=== PATIENT | female | born 1950 | race Caucasian/White ===

== ENCOUNTER 2017-05-31 14:14 | Emergency (ER) | payer OTHER ==
[~2017-05-31] VITALS: Ht 157.5 cm; Wt 80.0 kg
[~2017-05-31 14:14] MED LIST: AMOX500T PO; ATEN1TAB73; CLON-352 PO; METH5TAB PO; PENI250T PO; POTA75TA2 PO; PROC25SU22 PO; PROV10TA PO
[2017-05-31 14:18] VITALS: BP 183/82; PULSE 73; RESP 16; TEMP 98.6; O2SAT 95
--- NOTE | 2017-05-31 14:27 | PD ---
Physical Exam Time Seen by Provider: 14:26 Narrative 67 y/o female with sudden onset vertigo sensation at 1030AM today, lasted 10 seconds and resolved. [facility] Vital signs reviewed. Seen at triage desk. Awaiting bed placement. Data Data Last Documented VS Vital Signs Date Time Temp Pulse Resp B/P Pulse Ox O2 Delivery O2 Flow Rate FiO2 05/31/17 14:18 98.6 73 16 183/82 95 MDM Medical Record Reviewed: Yes Supervised Visit with PERLA: Rakesh Leyva May 31, 2017 14:27
--- NOTE | 2017-05-31 14:49 | PD ---
HPI Chief Complaint: Dizziness Time Seen by Provider: 14:48 Travel History International Travel<30 days: No Contact w/Intl Traveler<30days: No Traveled to known affect area: No History of Present Illness HPI 67 YO F with PMH of HTN, IBS, RA presents to the ED for evaluation of a single episode of dizziness at 1030a today. Patient states that she was sitting at her computer when she felt as if the room was spinning. This feeling lasted approximately 10 seconds before resolving on its own. She endorses diaphoresis during the episode. She denies chest pains, palpitations, shortness of breath, nausea or vomiting, dysuria. She states that she checked her blood pressure immediately after the episode, measured 160/80. Asymptomatic now. No further episodes reported during the course of the day. PFSH Past Medical History Arthritis: Yes (DEGENERATIVE AND RHEUMATOID) Autoimmune Disease: Yes Blood Disorders: No Anxiety: Yes Cancer: No Cardiovascular Problems: Yes Diminished Hearing: Yes Genitourinary: No Hypertension: Yes Musculoskeletal: Yes (CHRONIC BACK PAIN, SPINAL STENOSIS,SPONDYLOSIS) Reproductive: No Respiratory: No Thyroid Disease: Yes (HYPO) Menopausal: Yes Past Surgical History Other Surgery: Yes (carpal tunnel surgery) Social History Alcohol Use: No Tobacco Use: No Substance Use: No Allergies-Medications (Allergen,Severity, Reaction): Coded Allergies: Allopurinol (Verified Allergy, Severe, Rash, 05/31/17) Amoxicillin (Verified Allergy, Severe, 05/31/17) STOMATITIS, RED, FLAT CIRCULAR SPOTS ON ARMS AND LEGS Codeine (Verified Allergy, Severe, HIVES, 05/31/17) Gabapentin (Verified Allergy, Severe, Dizziness, 05/31/17) Minocin (Verified Allergy, Severe, Dizziness, 05/31/17) NAUSEA AND DIZZINESS. Prednisone (Verified Allergy, Severe, Bleeding, 05/31/17) Probenecid (Verified Allergy, Severe, Diarrhea, 05/31/17) Venlafaxine (Verified Allergy, Severe, Nausea/Vomiting, 05/31/17) Uncoded Allergies: ZESTORETIC (Allergy, Severe, Diarrhea, 05/31/17) DIARRHEA, MUSCLE PAIN, RASH Reported Meds & Prescriptions Reported Meds & Active Scripts Active Provera (Medroxyprogesterone Acetate) 10 Mg Tab 10 Mg PO DAILY Reported Potassimin (Potassium) 75 Mg Tab 20 Meq PO Prochlorperazine 25 Mg Sup 10 Mg PO TIDPRN Amoxicillin 500 Mg Tab 875 Mg PO Q12 Pen Vk (Penicillin V Potassium) 250 Mg Tab 0 PO UNKNOWN DOSE Tenormin (Atenolol) 25 Mg Tab 0 UNKNOWN DOSE Clonidine Hcl (Clonidine HCl) 0.1 Mg Tab 0.1 Mg PO Methadone Hcl (Methadone HCl) 5 Mg Tab 2.5 Mg PO TID Review of Systems Except as stated in HPI: all other systems reviewed are Neg Physical Exam Narrative GENERAL: Well-nourished, well-developed hirsute white female in no acute distress. SKIN: Focused skin assessment warm/dry. HEAD: Normocephalic. Atraumatic. EYES: No scleral icterus. No injection or drainage. NECK: Supple, trachea midline. No JVD or lymphadenopathy. CARDIOVASCULAR: Regular rate and rhythm without murmurs, gallops, or rubs. RESPIRATORY: Breath sounds clear and equal bilaterally. No accessory muscle use. GASTROINTESTINAL: Abdomen soft, non-tender, nondistended. MUSCULOSKELETAL: No cyanosis, or edema. Impressive swan neck deformity of bilateral hands. Ambulatory with a walker. NEUROLOGICAL: Awake and alert. Cranial nerves II through XII intact. Motor and sensory grossly within normal limits. Five out of 5 muscle strength in all muscle groups. Normal speech. BACK: Nontender without obvious deformity. No CVA tenderness. Data Data Last Documented VS Vital Signs Date Time Temp Pulse Resp B/P Pulse Ox O2 Delivery O2 Flow Rate FiO2 05/31/17 14:53 Room Air 05/31/17 14:18 98.6 73 16 183/[address] Brain W/O Iv Contrast(Rout) (05/31/17 15:00) MDM Medical Decision Making Medical Screen Exam Complete: Yes Emergency Medical Condition: Yes Differential Diagnosis episodic dizziness versus HTN versus vertigo versus other Narrative Course 67 YO F with PMH of HTN, IBS, RA presents to the ED for evaluation of a single episode of dizziness at 1030a today. Patient states that she was sitting at her computer when she felt as if the room was spinning. This feeling lasted approximately 10 seconds before resolving on its own. She endorses diaphoresis during the episode. She denies chest pains, palpitations, shortness of breath, nausea or vomiting. She states that she checked her blood pressure immediately after the episode, measured 160/80. Asymptomatic now. No further episodes reported during the course of the day. Vitals reviewed. Physical exam reveals profound swan neck deformity of all the digits of the hands bilaterally. No focal neuro deficits. CT of the head negative for acute pathology. I do not feel further evaluation is warranted at this time. Single episode that lasted only 10 seconds. She is instructed to continue to monitor her blood pressure, follow up with her primary care, return to the ED for worsening symptoms. She indicated understanding of instructions and is agreeable to the care plan. She is stable and discharged home. Diagnosis Primary Impression: Episode of dizziness Referrals: Primary Care Physician Patient Instructions: Dizziness (ED), General Instructions Additional Instructions: Continue to monitor your blood pressure intermittently. Keep a log and discussed this with your primary care provider next visit. Return to ED for any urgent or emergent medical condition. Disposition: 01 DISCHARGE HOME Condition: Stable Kailee Linares May 31, 2017 14:49
--- NOTE | 2017-05-31 15:55 | RADRPT ---
EXAM DATE/TIME: 05/31/2017 15:39 [facility] COMPARISON: No previous studies available for comparison. INDICATIONS : Brief episode of dizziness earlier, now asymptomatic. RADIATION DOSE: 49.72 CTDIvol (mGy) MEDICAL HISTORY : Hypertension. Hypothyroidism. Rheumatoid arthritis. SURGICAL HISTORY : None. ENCOUNTER: Initial ACUITY: 1 day PAIN SCALE: 0/10 LOCATION: cranial TECHNIQUE: Multiple contiguous axial images were obtained of the head. Using automated exposure control and adj ustment of the mA and/or kV according to patient size, radiation dose was kept as low as reasonably a chievable to obtain optimal diagnostic quality images. DICOM format image data is available electro nically for review and comparison. FINDINGS: CEREBRUM: The ventricles are normal for age. No evidence of midline shift, mass lesion, hemorrhage or acute in farction. No extra-axial fluid collections are seen. Prominent calcifications are noted within the b ilateral basal ganglia. POSTERIOR FOSSA: The cerebellum and brainstem are intact. The 4th ventricle is midline. The cerebellopontine angle i s unremarkable. EXTRACRANIAL: The visualized portion of the orbits is intact. SKULL: The calvaria is intact. No evidence of skull fracture. CONCLUSION: No acute intracranial abnormality. Evin Burns MD on May 31, 2017 at 15:49 Board Certified Radiologist. This report was verified electronically.
== END 2017-05-31 16:27 | disposition home or self-care (01) ==
LOC: NEPD 14:14
DX: R42 Dizziness and giddiness (principal); R61 Generalized hyperhidrosis; I10 Essential (primary) hypertension; E07.9 Disorder of thyroid, unspecified; H91.90 Unspecified hearing loss, unspecified ear; Z87.19 Personal history of other diseases of the digestive system; Z87.39 Personal history of other diseases of the musculoskeletal system and connective tissue; Z86.2 Personal history of diseases of the blood and blood-forming organs and certain disorders involving the immune mechanism; Z86.59 Personal history of other mental and behavioral disorders; Z86.79 Personal history of other diseases of the circulatory system
CPT/HCPCS: 70450

== ENCOUNTER 2017-06-09 13:27 | Emergency (ER) | payer OTHER ==
[2017-06-09 13:29] VITALS: BP 216/93; PULSE 74; RESP 16; TEMP 97.9; O2SAT 97
[2017-06-09 14:33] VITALS: BP 216/93; PULSE 70; RESP 16; O2SAT 99
[2017-06-09 14:40] VITALS: BP 200/84; PULSE 75; RESP 16; O2SAT 99
[2017-06-09] MEDS ORDERED: ATEN25TA PO (14:40)
--- NOTE | 2017-06-09 14:55 | PD ---
HPI Chief Complaint: Dizziness Time Seen by Provider: 14:35 Travel History International Travel<30 days: No Contact w/Intl Traveler<30days: No Traveled to known affect area: No History of Present Illness HPI This patient complains of having an episode of dizziness. It lasted literally just a few seconds and resolved. She was here for it recently and had negative brain CT. This episode was less then the first one. Both episodes have occurred in the setting of spiked blood pressure. He is currently 200 systolic. No headache. No syncope or palpitations. Symptoms are of mild severity. No alleviating factors. PFSH Past Medical History Arthritis: Yes (DEGENERATIVE AND RHEUMATOID) Autoimmune Disease: Yes Blood Disorders: No Anxiety: Yes Cancer: No Cardiovascular Problems: Yes Diminished Hearing: Yes GERD: Yes Genitourinary: Yes (chronic kidney disease ) Hypertension: Yes Musculoskeletal: Yes (CHRONIC BACK PAIN, SPINAL STENOSIS,SPONDYLOSIS) Reproductive: No Respiratory: No Immunizations Current: Yes Thyroid Disease: Yes (HYPO) Influenza Vaccination: No Menopausal: Yes Past Surgical History Joint Replacement: Yes (carpal tunnel on left wrist) Other Surgery: Yes (carpal tunnel surgery) Social History Alcohol Use: No Tobacco Use: No Substance Use: No Allergies-Medications (Allergen,Severity, Reaction): Coded Allergies: Allopurinol (Verified Allergy, Severe, Rash, 06/09/17) Amoxicillin (Verified Allergy, Severe, 06/09/17) STOMATITIS, RED, FLAT CIRCULAR SPOTS ON ARMS AND LEGS Codeine (Verified Allergy, Severe, HIVES, 06/09/17) Gabapentin (Verified Allergy, Severe, Dizziness, 06/09/17) Minocin (Verified Allergy, Severe, Dizziness, 06/09/17) NAUSEA AND DIZZINESS. Prednisone (Verified Allergy, Severe, Bleeding, 06/09/17) Probenecid (Verified Allergy, Severe, Diarrhea, 06/09/17) Venlafaxine (Verified Allergy, Severe, Nausea/Vomiting, 06/09/17) Uncoded Allergies: ZESTORETIC (Allergy, Severe, Diarrhea, 05/31/17) DIARRHEA, MUSCLE PAIN, RASH Reported Meds & Prescriptions Reported Meds & Active Scripts Active Reported Sebex Topical (Salicylic Acid/Sulfur) 2-2 % Sham 1 Applic TOPICAL DAILY Apply to affected area on scalp for skin condition Prochlorperazine Maleate 10 Mg Tab 10 Mg PO DAILY PRN Aspirin Adult Low Strength (Aspirin) 81 Mg Tabdr 81 Mg PO DAILY Methadone (Methadone HCl) 5 Mg Tab 7.5 Mg PO HS Methadone (Methadone HCl) 5 Mg Tab 5 Mg PO BID Levothyroxine (Levothyroxine Sodium) 150 Mcg Tab 150 Mcg PO DAILY Diphenhydramine (Diphenhydramine HCl) 25 Mg Cap 25 Mg PO TID PRN Clotrimazole Topical (Clotrimazole) 1% Cream 1 Applic TOPICAL BID Apply to affected area(s) Omeprazole 20 Mg Tab 20 Mg PO DAILY PRN Colchicine 0.6 Mg Tab 0.6 Mg PO BID Clonidine (Clonidine HCl) 0.1 Mg Tab 0.1 Mg PO BID Robaxin (Methocarbamol) 500 Mg Tab 750 Mg PO TID PRN Folic Acid 1 Mg Tablet 1 Mg PO DAILY Lasix (Furosemide) 40 Mg Tab 40 Mg PO DAILY Trazodone (Trazodone HCl) 50 Mg Tab 50 Mg PO HS Claritin (Loratadine) 10 Mg Cap 10 Mg PO DAILY Atenolol 50 Mg Tab 50 Mg PO DAILY Review of Systems General / Constitutional: No: Fever Eyes: No: Visual changes HENT: Positive: Lightheadedness, No: Headaches Cardiovascular: No: Chest Pain or Discomfort Respiratory: No: Shortness of Breath Gastrointestinal: No: Abdominal Pain Genitourinary: No: Dysuria Musculoskeletal: No: Pain Skin: No Rash Neurologic: Positive: Dizziness, No: Weakness Psychiatric: No: Depression Endocrine: No: Polydipsia Hematologic/Lymphatic: No: Easy Bruising Physical Exam Narrative GENERAL: Well-nourished, well-developed patient in no apparent distress. SKIN: Focused skin assessment reveals no rash and nodules. Skin is Warm and dry. HEAD: Atraumatic. Normocephalic. EYES: Pupils equal and round. No scleral icterus. No injection or drainage. ENT: No nasal bleeding or discharge. Mucous membranes pink and moist. NECK: Trachea midline. No JVD. CARDIOVASCULAR: Regular rate and rhythm. No murmur appreciated. RESPIRATORY: No accessory muscle use. Clear to auscultation. Breath sounds equal bilaterally. GASTROINTESTINAL: Abdomen soft, non-tender, nondistended. Hepatic and splenic margins not palpable. MUSCULOSKELETAL: Obvious rheumatoid arthritis changes in the small joints of both hands. No clubbing. No cyanosis. No edema. NEUROLOGICAL: Awake and alert. No obvious cranial nerve deficits. Motor grossly within normal limits. Normal speech. PSYCHIATRIC: Appropriate mood and affect; insight and judgment normal. Data Data Last Documented VS Vital Signs Date Time Temp Pulse Resp B/P Pulse Ox O2 Delivery O2 Flow Rate FiO2 06/09/17 15:46 91 18 186/75 100 Room Air 06/09/17 13:29 97.9 Orders Nifedipine (Procardia) (06/09/17 15:00) [employer] / Telemetry [id number] (06/09/17 14:47) MDM Medical Decision Making Medical Screen Exam Complete: Yes Emergency Medical Condition: Yes Medical Record Reviewed: Yes Differential Diagnosis Hypertensive episode, vertigo, noncompliance Narrative Course I have reviewed the patient's electronic medical record. Reviewed her recent visit including negative CT of the brain I gave her dose of Procardia for accelerated hypertension Will reassess blood pressure She is neurologically intact. Blood pressure this time is 178 systolic Advised her to check and record daily She is to follow-up with primary care to discuss her blood pressure that is not being controlled as well as her lightheadedness spells Extended cardiac monitoring reveals sinus rhythm with a rare PVC Diagnosis Primary Impression: Episode of dizziness Additional Impression: Accelerated hypertension Additional Instructions: The patient was advised to follow up with their physician and return if they worsen. Med/Other Pt SpecificInfo: Other Disposition: 01 DISCHARGE HOME Condition: Stable Nehemias Hartman MD Jun 09, 2017 14:55
[2017-06-09] MEDS ORDERED: NIFEdipine 20 MG CAP PO ONE (15:00)
[2017-06-09] MEDS ORDERED: ATEN50TA PO (15:17)
[2017-06-09] MEDS ORDERED: FOLI1TAB6 PO (15:18)
[2017-06-09] MEDS ORDERED: CLAR10CA3 PO (15:18)
[2017-06-09] MEDS ORDERED: FURO1TAB60 PO (15:18)
[2017-06-09] MEDS ORDERED: ASPI1TAB91 PO (15:18)
[2017-06-09] MEDS ORDERED: LEVO150T7 PO (15:18)
[2017-06-09] MEDS ORDERED: CLOT1CRE TOPICAL (15:18)
[2017-06-09] MEDS ORDERED: OMEP20TA PO (15:18)
[2017-06-09] MEDS ORDERED: COLC1TAB15 PO (15:18)
[2017-06-09] MEDS ORDERED: ROBA500T PO (15:18)
[2017-06-09] MEDS ORDERED: TRAZ50TA12 PO (15:18)
[2017-06-09] MEDS ORDERED: CLON0.1T PO (15:18)
[2017-06-09] MEDS ORDERED: [UNRECOGNIZED DRUG - OTHER] TOPICAL (15:18)
[2017-06-09] MEDS ORDERED: DIPH25CA PO (15:18)
[2017-06-09] MEDS ORDERED: METH5TAB PO ×2 (15:18)
[2017-06-09] MEDS ORDERED: PROC10TA PO (15:18)
[2017-06-09 15:46] VITALS: BP 186/75; PULSE 91; RESP 18; O2SAT 100
== END 2017-06-09 16:58 | disposition home or self-care (01) ==
LOC: NEPD 13:27
DX: R42 Dizziness and giddiness (principal); I10 Essential (primary) hypertension; E07.9 Disorder of thyroid, unspecified; H91.90 Unspecified hearing loss, unspecified ear; Z87.39 Personal history of other diseases of the musculoskeletal system and connective tissue; Z86.2 Personal history of diseases of the blood and blood-forming organs and certain disorders involving the immune mechanism; Z86.59 Personal history of other mental and behavioral disorders; Z86.79 Personal history of other diseases of the circulatory system; Z87.19 Personal history of other diseases of the digestive system; Z87.448 Personal history of other diseases of urinary system
CPT/HCPCS: 99283